=== PATIENT | female | born 1970 | race Caucasian/White ===

== ENCOUNTER → 2016-09-08 | Outpatient (CLI) | payer OTHER ==
[~2016-09-08] MED LIST: AMOXICILLIN875 MG PO; AZITHROMYCIN250 MG PO; BACTRIM DS TABL1 TAB PO; BENADRYL25 MG PO; CLARITIN10 MG PO; DIFLUCAN PO; FIORICET 50-321 EACH PO; KEFLEX PO; LEVAQUIN750 MG PO; LORTAB 5/500 TA1 TA1 PO; MEDROL4 MG/DOSE- PO; MOBIC PO; NICOTINE P1 PATCH .1 TD; NICOTINE TRANSD21 MG TOP; NO MEDICATIONS; PHENERGAN/CODEIN5 ML PO; PHENERGAN25 MG PO; PROVENTIL17 GM IH; PROVENTIL17 GM INH; TYLENOL #3 PO; TYLENOL325 M1 PO; VIBRAMYCIN100 M1 PO; VICODIN 5/500 T1 TAB PO; Z-PAK PO; ZITHROMAX; ZITHROMAX PO; [UNRECOGNIZED DRUG - OTHER] PO
--- NOTE | ~2016-09-08 | US5 ---
[facility]. [facility] A Service of [facility] & [facility] RADIOLOGY TEXT RESULTS PATIENT: BLAIRE DESOUZA LOCATION: SG : 70 UNIT #: [id number] AGE: [address]: Aidan Malone MD SEX: F ORDER DR: [id number] [address] [address] [id number] O MR#: [id number] #: [id number] NAME: BLAIRE DESOUZA : 1970 SEX: F STUDY DATE/TIME: 09/08/2016 12:51 UNIT: SG ROOM: STUDY DESCRIPTION: US Abdominal Complete Attending Physician: Aidan Malone III, M.D. Referring Physician: Aidan Malone III, M.D. Ordering Physician: Physician Non-Staff Primary Care Physician: Derek Restrepo Aprn MEDICAL IMAGING REPORT This report is preliminary unless electronic signature is present. EXAM Abdominal ultrasound complete, 09/08/2016 HISTORY Hepatitis C. Observation for hepatocellular carcinoma. FINDINGS The liver is homogeneous in echotexture and demonstrates no cystic or solid mass lesions. The intra and extrahepatic bile ducts are not dilated. The gallbladder is normal with no evidence of cholelithiasis, wall thickening or pericholecystic fluid. The common duct measures 3.0 mm. The pancreas and spleen are normal. The spleen measures 10.5 cm in greatest diameter. The visualized portions of the abdominal aorta and the inferior vena cava are within normal limits. The kidneys are normal bilaterally. IMPRESSION Negative abdominal ultrasound. Dictated by... Mingo Newell M.D. THIS IS AN ELECTRONICALLY VERIFIED REPORT Mingo Newell M.D. at 09/09/2016 2:10 PM Tejinder TD: 09/08/2016 15:37 JOB #: [id number] MEDICAL IMAGING REPORT Page 1 of 1
== END | disposition home or self-care (01) ==
LOC: SGUS 12:30
DX: B18.2 Chronic viral hepatitis C (principal)
CPT/HCPCS: 76700